=== PATIENT | male | born 1985 | race Caucasian/White ===

== ENCOUNTER 2018-01-23 06:24 | Emergency (ER) | payer OTHER, SELFPAY ==
[2018-01-23 06:31] VITALS: BP 140/86; PULSE 80; RESP 16; TEMP 36.3; O2SAT 100; BMI 30.1
--- NOTE | 2018-01-23 06:33 | ED.UPPEXIN ---
HPI - Extremity Injury (Upper) General Chief Complaint: Wound/Laceration Stated Complaint: Cut left index finger/knuckle Time Seen by Provider: 01/23/18 06:33 Source: patient Mode of arrival: ambulatory Limitations: no limitations History of Present Illness HPI narrative: the patient had arrived at work this morning. He had a breakfast sandwich with him. He was cutting a plastic wrap off the top of a bottle of hot sauce to put on the sandwich. He was attempting to cut the plastic still with scissors. He slipped, lacerating the dorsal left index finger. There is active bleeding, and shooting pain. There is no numbness or weakness. There is no restriction of motion. He is right-hand dominant. His last tetanus shot was 8 years ago. Related Data Allergies Allergy/AdvReac Type Severity Reaction Status Date / Time No Known Drug Allergies Allergy Verified 01/23/18 06:35 Review of Systems Musculoskeletal Reports as per HPI, Denies muscle weakness, Denies numbness, Denies stiffness and Denies tingling Integumentary/Breasts Denies rash, Denies skin swelling and Reports wounds Neurologic Denies numbness and Denies tingling PFSH Medical History No significant medical problems (Acute) No significant past surgical history (Acute) Social History Smoking Status: Never smoker Exam Initial Vital Signs Initial Vital Signs: Vital Signs Temperature 97.3 F L 01/23/18 06:31 Pulse Rate 80 01/23/18 06:31 Respiratory Rate 16 01/23/18 06:31 Blood Pressure 140/86 01/23/18 06:31 Pulse Oximetry 100 01/23/18 06:31 Const General: cooperative and well developed Nutritional Appearance: well nourished Orientation: alert, awake, oriented x3 and not confused Skin General: no rashes or lesions noted and other ( 1.5 cm laceration to the left index finger. The lacerations between the dorsal PIP and the IP joints.) Neuro General: alert, oriented x3 and no focal motor deficits Sensory Exam: no sensory deficits noted Extrem General: full ROM and no pedal edema Left upper extremity: hand ( Left index injury as noted above. Full range of motion of the digit, no tendon injury.) Procedures Laceration Repair Laceration 1: Site: hand ( 1.5 cm laceration to the mid, dorsal left index finger.) Description: linear Depth: simple, single layer Local Anesthetic: lidocaine 1% Amount of anesthesia used (mL): 1 Pre-repair: wound explored and irrigated extensively ( The wound was cleansed with Betadine and rinsed with normal saline.) Skin layer closed with: nylon Size (cm): 5-0 Number of sutures: 1 Technique: simple, interrupted and other ( The patient tolerated the procedure well. There were no complications.) Course Orders Ordered: Discontinued Medications Diphtheria/Tetanus/Acell Pertussis (Adacel) 0.5 ml IM .ONCE ONE Stop: 01/23/18 06:46 Vital Signs - 8 hr 01/23/18 06:31 Temperature 97.3 F L Pulse Rate 80 Respiratory Rate 16 Blood Pressure 140/86 Pulse Oximetry 100 Discharge Plan Departure Patient Disposition: Home Clinical Impression: Laceration of left index finger Instructions: DI for Laceration Repair -- Finger Activity Restrictions/Additional Instructions: Keep the bandage in place for 3 days. While at work, keep the injury covered follow-up with your doctor in 10 days for suture removal. Return here as needed.
[2018-01-23] MEDS: TET,DIPH,PERTUSS(ACELL),VAC/PF 0.5 ML SYRINGE IM (06:54)
--- NOTE | 2018-01-23 07:04 | PC.NURSE ---
2cm lac across left first finger proximal knuckle, well approximated edges, one stitch placed, bacitracin, telfa and tube gauze applied. Pt reports very tolerable pain. Pos cms
== END 2018-01-23 07:23 | disposition home or self-care (01) ==
PROVIDERS: Emergency Provider Emergency Medicine
DX: S61.211A Laceration without foreign body of left index finger without damage to nail, initial encounter (principal); W27.2XXA Contact with scissors, initial encounter
CPT/HCPCS: 12001; 90471; 99283; 90715